=== PATIENT | female | born 1960 | race Caucasian/White ===

== ENCOUNTER 2020-11-15 13:16 | Emergency (ER) | payer BC, OTHER ==
[~2020-11-15] VITALS: Ht 157.5 cm; Wt 78.9 kg
[~2020-11-15 13:16] MED LIST: ABILIFY5 MG PO; CYMBALTA30 MG; CYMBALTA60 MG PO; Z.0.ABILIFY2 MG PO; Z.0.AMBIEN CR12.5 MG; Z.0.CYMBALTA30 MG; Z.2.TRIAMTERENE-HC1
[2020-11-15] MEDS ORDERED: METOPROLOL SUCC50 MG PO (13:36)
[2020-11-15] MEDS ORDERED: SODIUM CHLORIDE 0.9% 1000ML 1,000 ML IV STA (13:37)
[2020-11-15] MEDS ORDERED: FAMOTIDINE 20 MG/2 ML VIAL IV ONE ×2 (13:45→13:58)
[2020-11-15] MEDS ORDERED: LEVOFLOXACIN 500 MG TAB PO ONE (13:45)
[2020-11-15] MEDS ORDERED: ONDANSETRON HCL INJ 2MG/ML 2ML 2 MG/ML VIAL IV ONE (13:45)
[2020-11-15] MEDS ORDERED: METRONIDAZOLE 500MG/NS 100ML 100 ML IV ONE ×2 (13:45→13:58)
[2020-11-15] MEDS ORDERED: KETOROLAC TROMETHAMINE 30 MG/ML VIAL IV ONE (13:45)
[2020-11-15] MEDS ORDERED: METRONIDAZOLE500 MG PO (13:48)
[2020-11-15] MEDS ORDERED: PROMETHAZI6.25 MG/5 PO (13:48)
[2020-11-15] MEDS ORDERED: CIPRO500 MG PO (13:48)
[2020-11-15] MEDS ORDERED: FAMOTIDINE20 MG PO (13:48)
[2020-11-15] MEDS ORDERED: LEVOFLOXACIN 500 MG TAB ONE (13:57)
[2020-11-15] MEDS ORDERED: ONDANSETRON HCL INJ 2MG/ML 2ML 2 MG/ML VIAL ONE (13:57)
[2020-11-15] MEDS ORDERED: KETOROLAC TROMETHAMINE 30 MG/ML VIAL ONE (13:57)
[2020-11-15] MEDS ORDERED: SODIUM CHLORIDE 0.9% 1000ML 1,000 ML ONE (13:58)
[2020-11-15 15:29] VITALS: BP 148/71
== END 2020-11-15 15:27 | disposition home or self-care (01) ==
LOC: FSED 13:26
DX: R11.2 Nausea with vomiting, unspecified (principal); K52.9 Noninfective gastroenteritis and colitis, unspecified; E86.0 Dehydration; I10 Essential (primary) hypertension; F41.9 Anxiety disorder, unspecified; Z98.84 Bariatric surgery status; F17.210 Nicotine dependence, cigarettes, uncomplicated
CPT/HCPCS: 80053; 81003; 85025; 96374; 96375; 99283; J1885; J2405; J7030

== ENCOUNTER 2021-11-03 15:35 | Emergency (ER) | payer BC ==
[~2021-11-03] VITALS: Ht 157.5 cm; Wt 78.9 kg
[~2021-11-03 15:35] MED LIST changes: +CIPRO500 MG PO; +FAMOTIDINE20 MG PO; +METOPROLOL SUCC50 MG PO; +METRONIDAZOLE500 MG PO; +PROMETHAZI6.25 MG/5 PO
[2021-11-03] MEDS ORDERED: SODIUM CHLORIDE 0.9% 1000ML 1,000 ML IV STA (16:10)
[2021-11-03 16:24] LABS: BASOPHILS # (AUTO) 0.1 (0.0-0.1); BASOPHILS % 0.9 % (0.0-1.0); EOSINOPHILS # (AUTO) 0.3 (0.0-0.4); EOSINOPHILS % 5.1 % (0.0-6.0); HEMATOCRIT 43.3 % (34.2-44.1); HEMOGLOBIN 15.3 g/dL (12.0-16.0); LYMPHOCYTES # (AUTO) 2.6 (1.0-3.2); LYMPHOCYTES % 39.1 % (18.0-39.1); MEAN CORPUSCULAR HEMOGLOBIN 33.9 pg (28-32); MEAN CORPUSCULAR HGB CONC 35.3 g/dL (31-35); MONOCYTES # (AUTO) 0.7 (0.2-0.8); MONOCYTES % 10.5 % (4.4-11.3); NEUTROPHILS % 44.1 % (38.7-80.0); PLATELET COUNT 183 x10e3/uL (140-360); RED BLOOD COUNT 4.51 x10e6/uL (3.6-5.1); RED CELL DISTRIBUTION WIDTH 13.9 % (11.7-14.4)
[2021-11-03 16:33] LABS: INR 0.84; PROTHROMBIN TIME 12.3 seconds (11.9-14.5)
[2021-11-03 16:34] LABS: AMPHETAMINES SCREEN,URINE NEGATIVE (NEGATIVE); BENZODIAZEPINES SCREEN,URINE NEGATIVE (NEGATIVE); PHENCYCLIDINE SCREEN,URINE NEGATIVE (NEGATIVE)
[2021-11-03 16:36] LABS: CLARITY,URINE CLEAR (CLEAR); COLOR,URINE YELLOW (YELLOW); KETONES,URINE NEGATIVE (NEGATIVE); LEUKOCYTE ESTERASE ,URINE NEGATIVE (NEGATIVE); NITRITE,URINE NEGATIVE (NEGATIVE); PROTEIN,URINE DIPSTICK TRACE (NEGATIVE); URINE UROBILINOGEN 0.2 mg/dL (0.2 - 1)
[2021-11-03 16:39] LABS: BACTERIA,URINE FEW /HPF; EPITHELIAL CELLS,URINE FEW /LPF; MUCUS,URINE MANY (RARE); RBC,URINE 0-5 /HPF (0-5)
[2021-11-03 16:44] LABS: ALBUMIN 4.2 g/dL (3.5-5.0); ALBUMIN/GLOBULIN RATIO 1.2 (0.8-2.0); ANION GAP 23.8 mmol/L (8-16); CALCIUM 9.4 mg/dL (8.4-10.2); CREATININE, SERUM 0.65 mg/dL (0.57-1.11); MAGNESIUM 2.1 MG/DL (1.3-2.1); POTASSIUM 3.8 mmol/L (3.5-5.1)
[2021-11-03 17:04] LABS: CREATINE KINASE MB 0.8 ng/mL (0-5.0); THYROID STIMULATING HORMONE 1.677 uIU/mL (0.350-4.940)
== END 2021-11-03 17:33 | disposition home or self-care (01) ==
LOC: ER 16:00
DX: F10.129 Alcohol abuse with intoxication, unspecified (principal); E86.0 Dehydration; M25.552 Pain in left hip; I10 Essential (primary) hypertension; F41.9 Anxiety disorder, unspecified; F32.A Depression, unspecified; Z98.84 Bariatric surgery status; Z20.822 Contact with and (suspected) exposure to COVID-19
CPT/HCPCS: 36415; 70450; 71045; 80053; 80307; 80320; 80329; 81001; 82140; 82550; 82553; 83735; 83880; 84443; 84484; 85025; 85610; 85730; 87040; 87086; 93005; 99284; J7030; U0002

== ENCOUNTER 2022-10-06 17:24 | Emergency (ER) | payer BC, OTHER ==
[~2022-10-06] VITALS: Ht 157.5 cm; Wt 85.4 kg
[2022-10-06] MEDS ORDERED: HYDROCODONE/APAP 5MG-325MG TAB PO ONE (18:30)
[2022-10-06] MEDS ORDERED: HYDROCHLOROTHIA25 MG PO (18:32)
[2022-10-06] MEDS ORDERED: MONTELUKAST SOD10 MG PO (18:32)
[2022-10-06] MEDS ORDERED: SERTRALINE HCL50 MG PO (18:32)
[2022-10-06] MEDS ORDERED: ONDANSETRON HCL 4 MG ORAL DISINTEGRATING TAB ONE (18:43)
[2022-10-06] MEDS ORDERED: ONDANSETRON HCL 4 MG ORAL DISINTEGRATING TAB PO ONE (18:45)
[2022-10-06] MEDS ORDERED: MELOXICAM7.5 MG PO (20:05)
== END 2022-10-06 20:30 | disposition home or self-care (01) ==
LOC: FSED 17:37
DX: S50.11XA Contusion of right forearm, initial encounter (principal); W01.0XXA Fall on same level from slipping, tripping and stumbling without subsequent striking against object, initial encounter; Y93.E5 Activity, floor mopping and cleaning; Y92.89 Other specified places as the place of occurrence of the external cause; I10 Essential (primary) hypertension; K76.9 Liver disease, unspecified; F41.9 Anxiety disorder, unspecified; Z87.19 Personal history of other diseases of the digestive system; Z98.84 Bariatric surgery status
CPT/HCPCS: 73060; 73090; 73130; 99284; Q0162

== ENCOUNTER 2023-03-02 19:00 | Emergency (ER) | payer BC, MEDICARE ==
[~2023-03-02] VITALS: Ht 157.5 cm; Wt 81.6 kg
[~2023-03-02 19:00] MED LIST changes: +HYDROCHLOROTHIA25 MG PO; +MELOXICAM7.5 MG PO; +MONTELUKAST SOD10 MG PO; +SERTRALINE HCL50 MG PO
[2023-03-02] MEDS ORDERED: HYDROCODONE/APAP 5MG-325MG TAB PO ONE (19:45)
[2023-03-02] MEDS ORDERED: DEXAMETHASONE SOD PHOS 10 MG/1 ML VIAL IM ONE (19:45)
[2023-03-02] MEDS ORDERED: ACETAMINOPHEN-1 EAC4 PEG (19:58)
[2023-03-02] MEDS ORDERED: METHOCARBAMOL750 MG PO (19:58)
[2023-03-02 20:21] VITALS: BP 135/80; PULSE 60; RESP 16; O2SAT 96
== END 2023-03-02 20:26 | disposition home or self-care (01) ==
LOC: ER 19:16
DX: M54.30 Sciatica, unspecified side (principal); I10 Essential (primary) hypertension; K76.9 Liver disease, unspecified; F41.9 Anxiety disorder, unspecified; F32.A Depression, unspecified; Z86.19 Personal history of other infectious and parasitic diseases; Z98.84 Bariatric surgery status
CPT/HCPCS: 99283; J1100

== ENCOUNTER 2025-02-07 12:07 | Emergency (ER) | payer MEDICARE ==
[~2025-02-07] VITALS: Ht 157.5 cm; Wt 92.6 kg
[~2025-02-07 12:07] MED LIST changes: +ACETAMINOPHEN-1 EAC4 PEG; +BACTRIM DS TAB1 EACH PO; +METHOCARBAMOL750 MG PO
[2025-02-07] MEDS ORDERED: PREDNISONE20 MG PO (12:35)
[2025-02-07] MEDS ORDERED: CETIRIZINE HCL10 M1 PO (12:36)
[2025-02-07 13:06] VITALS: PULSE 100; RESP 17; TEMP 98; O2SAT 98
== END 2025-02-07 13:16 | disposition home or self-care (01) ==
LOC: FSED 12:20
DX: L53.9 Erythematous condition, unspecified (principal); I10 Essential (primary) hypertension; K76.9 Liver disease, unspecified; F41.9 Anxiety disorder, unspecified; F32.A Depression, unspecified; Z87.19 Personal history of other diseases of the digestive system; Z98.84 Bariatric surgery status
CPT/HCPCS: 99283

== ENCOUNTER 2025-02-25 16:48 | Emergency (ER) | payer MEDICARE ==
[~2025-02-25] VITALS: Ht 157.5 cm; Wt 89.9 kg
[~2025-02-25 16:48] MED LIST changes: +CETIRIZINE HCL10 M1 PO; +PREDNISONE20 MG PO
[2025-02-25 17:00] VITALS: PULSE 76; RESP 16; TEMP 98.5; O2SAT 96
[2025-02-25] MEDS ORDERED: CEPHALEXIN500 MG PO (17:28)
[2025-02-25] MEDS: LIDOCAINE HCL 1% LOCAL INJ 20 ML VIAL INJ ONE (17:41)
== END 2025-02-25 17:34 | disposition home or self-care (01) ==
LOC: FSED 17:00
DX: L02.415 Cutaneous abscess of right lower limb (principal); I10 Essential (primary) hypertension; J45.909 Unspecified asthma, uncomplicated; F41.9 Anxiety disorder, unspecified; F32.A Depression, unspecified; Z87.19 Personal history of other diseases of the digestive system; Z98.84 Bariatric surgery status
CPT/HCPCS: 99284